=== PATIENT | female | born 1965 | race Caucasian/White ===

== ENCOUNTER 2016-11-28 22:37 | Emergency (ER) | payer OTHER ==
[2016-11-28 22:49] VITALS: BP 165/120; PULSE 113; TEMP 97.8; BMI 24.6
--- NOTE | 2016-11-28 23:51 | PDOC ---
History of Present Illness - General History Source: Patient Exam Limitations: No Limitations - History of Present Illness Initial Comments: 11/29/16 00:01 The patient is a 51 year old female with significant past medical history of hypertension, asthma/copd, rheumatoid arthritis, bipolar disorder, and posttraumatic stress disorder who presents to the ED with diffuse lower abdominal pain that began today. Patient reports her pain is worsened with movement. States noting some blood in her underwear, but unsure of physical source. She also has complaints of right flank pain and denies dysuria. Her LMP was 2 years ago. Patient reports associated nausea, vomiting, some diarrhea and abdominal bloating. She states having a endoscopy and colonoscopy in the past, which were both negative. The patient denies fever, chills, cough, SOB, chest pain, and palpitations. Allergies: lubiprostone, prochlorperazine edisylate, prochlorperazine maleate Social History: Marijuana use. Current everyday smoker (half ppd). No alcohol use reported. Past Surgical History: s/p left Total Knee Replacement, PCP: Dr. Mitra Elizondo <Sarah Mock - Last Filed: 11/29/16 04:03> - General History Source: Patient <RonalGulshan brody - Last Filed: 11/29/16 04:46> - General Chief Complaint: Pain Stated Complaint: KIDNEY PAIN Time Seen by Provider: 11/28/16 23:22 Past History <Sarah Mock - Last Filed: 11/29/16 04:03> - Past Medical History Cardiac Disorders: Yes COPD: Yes HTN: Yes Psychiatric Problems: Yes (ptsd, schizophrenia, BIPOLAR) Suicide Attempt (Hx): No - Immunization History Immunization Up to Date: Yes (no flu) - Psycho/Social/Smoking Cessation Hx Anxiety: No Suicidal Ideation: No Smoking History: Current every day smoker Have you smoked in the past 12 months: No Number of Cigarettes Smoked Daily: 5 If you are a former smoker, when did you quit?: 2014 Cigars Per Day: 0 Information on smoking cessation initiated: No 'Breaking Loose' booklet given: 04/16/16 Hx Alcohol Use: Yes Drug/Substance Use Hx: No Substance Use Type: None <Gulshan Rebolledo - Last Filed: 11/29/16 04:46> - Past Medical History Allergies/Adverse Reactions: Allergies Allergy/AdvReac Type Severity Reaction Status Date / Time lubiprostone [From Amitiza] Allergy Verified 11/28/16 22:47 prochlorperazine edisylate Allergy Verified 11/28/16 22:47 [From Compazine] prochlorperazine maleate Allergy Verified 11/28/16 22:47 [From Compazine] Home Medications: Ambulatory Orders Lisinopril 0 mg PO DAILY 06/20/16 Metoprolol Succinate [Toprol XL -] 0 mg PO DAILY 06/20/16 Ondansetron [Zofran *Odt*] 4 mg SL TID #30 od.tablet 11/29/16 Oxycodone HCl/Acetaminophen [Percocet 5-325 mg Tablet] 1 - 2 tab PO Q6H #20 tablet MDD 4 11/29/16 Review of Systems - Review of Systems Able to Perform ROS?: Yes Comments:: 11/29/16 00:01 CONSTITUTIONAL: Absent: fever, no chills, no fatigue EYES: Absent: visual changes ENT: Absent: ear pain, no sore throat CARDIOVASCULAR: Absent: chest pain, no palpitations RESPIRATORY: Absent: cough, no SOB GI: +diffuse lower abdominal pain, nausea, vomiting, diarrhea, abdominal bloating Absent: no constipation GENITOURINARY: +vaginal bleeding/hematuria??, right flank pain Absent: dysuria, no frequency MUSCULOSKELETAL: Absent: back pain, no arthralgia, no myalgia SKIN: Absent: rash NEURO: Absent: headache <Bharrat,Sarah - Last Filed: 11/29/16 04:03> *Physical Exam - Vital Signs Last Vital Signs Temp Pulse Resp BP Pulse Ox 97.8 F 113 H 14 165/120 97 11/28/16 22:47 11/28/16 22:47 11/28/16 22:47 11/28/16 22:47 11/28/16 22:47 - Physical Exam Comments: 11/29/16 00:01 GENERAL: Well-appearing, well-nourished. Moderate distress. HEENT: Normocephalic, atraumatic. PERRL, EOM intact. CARDIOVASCULAR: Normal S1, S2. Regular rate and rhythm. PULMONARY: Clear to auscultation bilaterally. ABDOMEN: Soft, non-distended, right lower quadrant tenderness. + rebound and guarding. EXTREMITIES: Normal ROM in all four extremities. No gross deformities. SKIN: Warm, dry. No rash NEUROLOGICAL: No focal neurological deficits. <Sarah Mock - Last Filed: 11/29/16 04:03> - Vital Signs Last Vital Signs Temp Pulse Resp BP Pulse Ox 97.8 F 113 H 14 165/120 97 11/28/16 22:47 11/28/16 22:47 11/28/16 22:47 11/28/16 22:47 11/28/16 22:47 <Gulshan Rebolledo - Last Filed: 11/29/16 04:46> ED Treatment Course - LABORATORY CBC & Chemistry Diagram: 11/29/16 00:46 11/29/16 00:46 - RADIOLOGY Radiograph Interpretation: 11/29/16 04:03 EXAM: CT abdomen and pelvis without contrast Reviewed by Imaging vocational coordinator: FINDINGS: Lung bases are clear. The visualized cardiac chambers are normal size and configuration. Normal unenhanced liver, gallbladder, pancreas, spleen, adrenal glands and kidneys. The stomach and abdominal small and large bowel are normal. There is no aortic aneurysm. There is no significant retroperitoneal lymphadenopathy. The pelvic small and large bowel are normal. There is no evidence of appendicitis, although the appendix is only questionably seen. The uterus and adnexal structures are normal. Urinary bladder is unremarkable. There is no pelvic free fluid. No discrete pelvic lymphadenopathy is identified. IMPRESSION: No evidence of acute pathology. <Sarah Mock - Last Filed: 11/29/16 04:03> - LABORATORY CBC & Chemistry Diagram: 11/29/16 00:46 11/29/16 00:46 <Gulshan Rebolledo - Last Filed: 11/29/16 04:46> Medical Decision Making - Medical Decision Making 11/29/16 04:44 Dr. Rebolledo: The scribe's documentation has been prepared under my direction and personally reviewed by me in its entirery. I confirm that the note above accurately reflects all work, treatment, procedures, and medical decision making performed by me. Pt feels better. Although no obvious kidney stones are seen, still have high suspicion for for stones. Pt advised to follow up with urology. Rx Percocet, Zofran <Gulshan Rebolledo - Last Filed: 11/29/16 04:46> *DC/Admit/Observation/Transfer - Attestations Scribe Attestion: 11/29/16 00:01 Documentation prepared by Sarah Mock, acting as medical insurance clerk for Gulshan Rebolledo MD <Sarah Mock - Last Filed: 11/29/16 04:03> - Discharge Dispostion Admit: No <Gulshan Rebolledo - Last Filed: 11/29/16 04:46> Diagnosis at time of Disposition: Nausea and vomiting, Renal colic on right side Abdominal pain Qualifiers: Abdominal location: right lower quadrant Qualified Code(s): R10.31 - Right lower quadrant pain - Discharge Dispostion Disposition: HOME Condition at time of disposition: Improved - Prescriptions Prescriptions: Oxycodone HCl/Acetaminophen [Percocet 5-325 mg Tablet] 1 - 2 tab PO Q6H #20 tablet MDD 4 Ondansetron [Zofran *Odt*] 4 mg SL TID #30 od.tablet - Referrals Referrals: Kristian Elizondo [Primary Care Provider] - Erwin Rossi MD., MD [Staff Physician] - - Patient Instructions Printed Discharge Instructions: DI for Abdominal Pain-Adult, Kidney Stones -- Adult
[2016-11-29] MEDS ORDERED: morphine CARPU-JECT 4 MG/1 ML DISP.SYRIN ONE (00:38)
[2016-11-29] MEDS: morphine CARPU-JECT 2 MG/1 ML DISP.SYRIN IM ONE (00:51)
[2016-11-29] MEDS: ONDANSETRON *ODT* 4 MG TABLET SL ONE (01:00)
[2016-11-29] MEDS: SODIUM CHLORIDE 1,000 ML IV STA (01:00)
[2016-11-29 01:06] LABS: BASOPHIL 0.7 % (0-2.0); EOSINOPHIL 3.1 % (0-4.5); MCH 31.1 pg (25.7-33.7); MCHC 34.5 g/dl (32.0-36.0); MEAN CELL VOLUME 90.1 fl (80-96); MEAN PLT VOLUME 10.7 fl (7.5-11.1); NEUTROPHILS 59.2 % (42.8-82.8); PLATELET COUNT 193 K/MM3 (134-434); RDW 13.7 % (11.6-15.6); WHITE BLOOD COUNT 9.5 K/mm3 (4.0-10.0)
[2016-11-29 01:09] LABS: URINE APPEARANCE CLEAR; URINE BILIRUBIN NEGATIVE (NEGATIVE); URINE COLOR LTYELLOW; URINE GLUCOSE (UA) NEGATIVE (NEGATIVE); URINE KETONE NEGATIVE (NEGATIVE); URINE LEUK ESTERASE NEGATIVE (NEGATIVE); URINE NITRITE NEGATIVE (NEGATIVE); URINE PROTEIN NEGATIVE (NEGATIVE); URINE UROBILINOGEN NEGATIVE E.U./dl (0.2-1.0)
[2016-11-29 01:15] LABS: URINE BLOOD 3+ (NEGATIVE)
[2016-11-29 01:17] LABS: URINE MUCUS RARE; URINE RBC 577 /hpf (0-3); URINE WBC 10 /hpf (3-5)
[2016-11-29 01:19] LABS: INR 1.04 (0.82-1.09); PROTHROMBIN TIME (PATIENT) 11.5 SEC (9.98-11.88)
[2016-11-29] MEDS: ONDANSETRON 4 MG/2 ML VIAL IVPUSH STA ×2 (01:26→04:27)
[2016-11-29] MEDS: morphine CARPU-JECT 4 MG/1 ML DISP.SYRIN IVPUSH ONE (01:26)
[2016-11-29 01:28] LABS: ALBUMIN 3.8 g/dl (3.4-5.0); ANION GAP 11 (8-16); BILIRUBIN,TOTAL 0.4 mg/dL (0.2-1.0); CALCIUM 9.1 mg/dL (8.5-10.1); CO2 23 mmol/L (21-32); COCKROFT - GAULT 116.195; CREATININE 0.7 mg/dL (0.55-1.02); GLUCOSE,RANDOM 96 mg/dL (74-106); MAGNESIUM 1.9 mg/dL (1.8-2.4); SGOT/AST 24 U/L (15-37); SGPT/ALT 30 U/L (12-78); TOT PROT 7.3 g/dl (6.4-8.2)
[2016-11-29 01:29] LABS: ALK PHOS 118 U/L (45-117)
[2016-11-29] MEDS: morphine CARPU-JECT 2 MG/1 ML DISP.SYRIN IVPUSH ONE (04:27)
== END 2016-11-29 04:56 | disposition home or self-care (01) ==
LOC: JER 22:37
PROC: 3E0337Z Introduction of Electrolytic and Water Balance Substance into Peripheral Vein, Percutaneous Approach (ICD-10-PCS; principal; 2016-11-28)
PROC: 3E033NZ Introduction of Analgesics, Hypnotics, Sedatives into Peripheral Vein, Percutaneous Approach (ICD-10-PCS; 2016-11-28)
PROC: 3E033GC Introduction of Other Therapeutic Substance into Peripheral Vein, Percutaneous Approach (ICD-10-PCS; 2016-11-28)
PROC: 3E023NZ Introduction of Analgesics, Hypnotics, Sedatives into Muscle, Percutaneous Approach (ICD-10-PCS; 2016-11-28)
DX: N23 Unspecified renal colic (principal); F31.9 Bipolar disorder, unspecified; F43.10 Post-traumatic stress disorder, unspecified; I10 Essential (primary) hypertension; J44.9 Chronic obstructive pulmonary disease, unspecified; J45.909 Unspecified asthma, uncomplicated; M06.9 Rheumatoid arthritis, unspecified
CPT/HCPCS: 36415; 74176-TC; 80053; 81003; 81015; 83735; 84703; 85025; 85610; 86850; 86900; 86901; 87086; 99284-25

== ENCOUNTER 2016-11-30 09:16 | Emergency (ER) | payer OTHER ==
[2016-11-30 09:21] VITALS: TEMP 98.3; BMI 25.1
[2016-11-30] MEDS ORDERED: morphine CARPU-JECT 4 MG/1 ML DISP.SYRIN IVPUSH ONE (09:42)
[2016-11-30] MEDS ORDERED: SODIUM CHLORIDE 1,000 ML IV STA (09:42)
[2016-11-30] MEDS ORDERED: morphine CARPU-JECT 4 MG/1 ML DISP.SYRIN ONE (09:49)
[2016-11-30] MEDS ORDERED: ONDANSETRON 4 MG/2 ML VIAL ONE (09:53)
[2016-11-30] MEDS ORDERED: ONDANSETRON 4 MG/2 ML VIAL IVPUSH ONE (09:53)
--- NOTE | 2016-11-30 09:53 | PDOC ---
History of Present Illness - General History Source: Patient - History of Present Illness Timing/Duration: reports: getting worse Abdominal Pain Onset Location: reports: suprapubic <Shahriar Prieto - Last Filed: 11/30/16 12:40> <Nessa Neil - Last Filed: 12/01/16 07:53> - General Chief Complaint: Pain Stated Complaint: ABD PAIN, VAGINAL BLEEDING Time Seen by Provider: 11/30/16 09:37 Past History - Past Medical History Cardiac Disorders: Yes COPD: Yes HTN: Yes Psychiatric Problems: Yes (ptsd, schizophrenia, BIPOLAR) Suicide Attempt (Hx): No - Immunization History Immunization Up to Date: Yes (no flu) - Psycho/Social/Smoking Cessation Hx Anxiety: No Suicidal Ideation: No Smoking History: Current every day smoker Have you smoked in the past 12 months: No Number of Cigarettes Smoked Daily: 5 If you are a former smoker, when did you quit?: 2013 Cigars Per Day: 0 Information on smoking cessation initiated: No 'Breaking Loose' booklet given: 04/16/16 Hx Alcohol Use: Yes Drug/Substance Use Hx: No Substance Use Type: None <Leila PrietoYadielKeerthi - Last Filed: 11/30/16 12:40> <Nessa Neil - Last Filed: 12/01/16 07:53> - Past Medical History Allergies/Adverse Reactions: Allergies Allergy/AdvReac Type Severity Reaction Status Date / Time lubiprostone [From Amitiza] Allergy Verified 11/30/16 09:21 prochlorperazine edisylate Allergy Verified 11/30/16 09:21 [From Compazine] prochlorperazine maleate Allergy Verified 11/30/16 09:21 [From Compazine] Home Medications: Ambulatory Orders Lisinopril 0 mg PO DAILY 06/20/16 Metoprolol Succinate [Toprol XL -] 0 mg PO DAILY 06/20/16 Ondansetron [Zofran *Odt*] 4 mg SL TID #30 od.tablet 11/29/16 Oxycodone HCl/Acetaminophen [Percocet 5-325 mg Tablet] 1 - 2 tab PO Q6H #20 tablet MDD 4 11/29/16 Review of Systems - Review of Systems Constitutional: No: Chills, Fever ABD/GI: Yes: Nausea. No: Vomiting : No: Burning, Dysuria, Hematuria <Shahriar Prieto - Last Filed: 11/30/16 12:40> *Physical Exam - Vital Signs Last Vital Signs Temp Pulse Resp BP Pulse Ox 98.3 F 125 H 18 161/100 100 11/30/16 09:18 11/30/16 09:18 11/30/16 09:18 11/30/16 09:18 11/30/16 09:18 - Physical Exam General Appearance: Yes: Appropriately Dressed, Severe Distress HEENT: positive: Normal Voice Neck: positive: Supple Respiratory/Chest: negative: Respiratory Distress Gastrointestinal/Abdominal: positive: Normal Bowel Sounds, Tender, Soft. negative: Distended, Guarding, Rebound Integumentary: positive: Dry, Warm Neurologic: positive: Fully Oriented, Alert, Normal Mood/Affect <Shahriar Prieto - Last Filed: 11/30/16 12:40> - Vital Signs Last Vital Signs Temp Pulse Resp BP Pulse Ox 98.3 F 99 H 22 144/89 99 11/30/16 09:18 11/30/16 12:53 11/30/16 12:53 11/30/16 12:53 11/30/16 12:53 <Nessa Neil - Last Filed: 12/01/16 07:53> ED Treatment Course - LABORATORY CBC & Chemistry Diagram: 11/30/16 09:46 11/30/16 09:46 - RADIOLOGY Radiology Studies Ordered: Category Date Time Status PELVIS(OTHER) US [US] Stat Ultrasound 11/30/16 09:42 Ordered TRANSVAGINAL ULTRASOUND US [US] Stat Ultrasound 11/30/16 09:43 Ordered <Shahriar Prieto - Last Filed: 11/30/16 12:40> - LABORATORY CBC & Chemistry Diagram: 11/30/16 09:46 11/30/16 09:46 - ADDITIONAL ORDERS Additional order review: 11/30/16 09:46 RBC 4.44 MCV 91.1 MCHC 33.6 RDW 13.6 MPV 10.5 Neutrophils % 65.9 Lymphocytes % 22.2 Monocytes % 8.1 Eosinophils % 3.1 Basophils % 0.7 - Medications Given in the ED: ED Medications Discontinued Medications Generic Name Dose Route Start Last Admin Trade Name Freq PRN Reason Stop Dose Admin Sodium Chloride 1,000 mls @ 1,000 mls/hr 11/30/16 09:42 11/30/16 10:04 Normal Saline - IV 11/30/16 10:41 1,000 mls/hr ASDIR STA Administration Ketorolac Tromethamine 30 mg 11/30/16 12:16 11/30/16 12:27 Toradol Injection - IVPUSH 11/30/16 12:17 30 mg ONCE ONE Administration Morphine Sulfate 4 mg 11/30/16 09:42 11/30/16 10:04 Morphine Injection - IVPUSH 11/30/16 09:43 4 mg ONCE ONE Administration Ondansetron HCl 4 mg 11/30/16 09:53 11/30/16 10:04 Zofran Injection IVPUSH 11/30/16 09:54 4 mg ONCE ONE Administration <Nessa Neil - Last Filed: 12/01/16 07:53> Medical Decision Making - Medical Decision Making 11/30/16 09:45 51-year-old female history of hypertension, asthma/COPD, rheumatoid arthritis, bipolar disorder, posttraumatic stress disorder, chronic constipation on bowel regimen at home, menopausal x 2 years, s/p csection remotely, presents with severe pelvic pain and worsening vaginal bleeding. Patient was seen in ED 2 days ago for symptoms and had unremarkable labs and CT abdomen/pelvis and told to follow-up with her PMD. Patient states she was seen by PMD this a.m. who referred her back to the ED for re-evaluation. Patient states since she was seen in ED, vaginal bleeding has gotten worse. +nausea, no vomiting, dysuria, vaginal discharge, fever or chills. No h/o fibroids/cysts. No unexplained weight loss. Patient does have a sister with endometrial cancer See exam Post menopausal bleeding Normal H/H 2 days ago +fmhx of uterine ca -will need visual and stock associate f/u for bx Pelvic pain Neg w/u 2 days ago in ED, including unremarkable CT (did document no e/o appy though appendix ? seen as per radiology) Returns for worsening of sxs Pt appears very uncomfortable and hypertensive and tachycardic +ttp to mid suprapubic area, non-tender over [place] Pelvic w/ mod vag bleed w/ ?R adnexal ttp, no CMT Unclear etiology of sxs at this time, ?PID/TOA (though vag bleed and absence of vag discharge makes this less likely), doubt hemorrhagic cyst given pt's age, ucx neg from 2 days ago, though CT w/ ?visualization of appendix 2 days ago, pt NT over mcburneys today and do not suspect appy at this time -pain control -labs and US -reassess 11/30/16 12:40 Mild thickened endometrium on US, R ovary unseen, L ovary unremarkable and no adnexal masses or e/o torsion. Pt pain free currently and requesting discharge to go to work. Given copy of US and strongly encouraged to f/u with her visual and stock associate to r /o uterine malignancy. 11/30/16 12:44 <Shahriar Prieto - Last Filed: 11/30/16 12:40> *DC/Admit/Observation/Transfer <Shahriar Prieto - Last Filed: 11/30/16 12:40> - Attestations Physician Attestion: I reviewed the case with the mid-level practitioner and agree with the mid- level practitioner's assessment, diagnosis and disposition. <Nessa Neil - Last Filed: 12/01/16 07:53> Diagnosis at time of Disposition: Pelvic pain, Post-menopausal bleeding - Discharge Dispostion Disposition: HOME Condition at time of disposition: Improved - Referrals Referrals: Kristian Elizondo [Primary Care Provider] - - Patient Instructions Additional Instructions: Take motrin for pain and follow up with your visual and stock associate for a uterine biopsy to rule out malignancy
[2016-11-30 10:05] LABS: BASOPHIL 0.7 % (0-2.0); EOSINOPHIL 3.1 % (0-4.5); MCH 30.6 pg (25.7-33.7); MCHC 33.6 g/dl (32.0-36.0); MEAN CELL VOLUME 91.1 fl (80-96); MEAN PLT VOLUME 10.5 fl (7.5-11.1); NEUTROPHILS 65.9 % (42.8-82.8); PLATELET COUNT 167 K/MM3 (134-434); RDW 13.6 % (11.6-15.6); WHITE BLOOD COUNT 8.3 K/mm3 (4.0-10.0)
[2016-11-30 10:21] LABS: URINE APPEARANCE SLCLOUDY; URINE BILIRUBIN NEGATIVE (NEGATIVE); URINE COLOR RED; URINE GLUCOSE (UA) NEGATIVE (NEGATIVE); URINE KETONE NEGATIVE (NEGATIVE); URINE LEUK ESTERASE NEGATIVE (NEGATIVE); URINE NITRITE NEGATIVE (NEGATIVE); URINE UROBILINOGEN NEGATIVE E.U./dl (0.2-1.0)
[2016-11-30 10:22] LABS: URINE BLOOD 2+ (NEGATIVE); URINE PROTEIN 2+ (NEGATIVE)
[2016-11-30 10:26] LABS: ALBUMIN 3.8 g/dl (3.4-5.0); ALK PHOS 120 U/L (45-117); ANION GAP 7 (8-16); BILIRUBIN,TOTAL 0.5 mg/dL (0.2-1.0); CALCIUM 8.8 mg/dL (8.5-10.1); CO2 26 mmol/L (21-32); CREATININE 0.8 mg/dL (0.55-1.02); GLUCOSE,RANDOM 94 mg/dL (74-106); SGOT/AST 30 U/L (15-37); SGPT/ALT 33 U/L (12-78); TOT PROT 7.3 g/dl (6.4-8.2)
[2016-11-30 10:30] LABS: URINE BACTERIA RARE /hpf (NONE SEEN); URINE RBC 1759 /hpf (0-3); URINE WBC 10 /hpf (3-5)
[2016-11-30] MEDS ORDERED: KETOROLAC TROMETHAMINE 30 MG/1 ML VIAL IVPUSH ONE (12:16)
[2016-11-30] MEDS ORDERED: KETOROLAC TROMETHAMINE 30 MG/1 ML VIAL ONE (12:28)
[2016-11-30 12:54] VITALS: BP 144/89; PULSE 99
== END 2016-11-30 12:54 | disposition home or self-care (01) ==
LOC: JER 09:16
PROC: 3E033NZ Introduction of Analgesics, Hypnotics, Sedatives into Peripheral Vein, Percutaneous Approach (ICD-10-PCS; principal; 2016-11-30)
PROC: 3E0333Z Introduction of Anti-inflammatory into Peripheral Vein, Percutaneous Approach (ICD-10-PCS; 2016-11-30)
PROC: 3E033GC Introduction of Other Therapeutic Substance into Peripheral Vein, Percutaneous Approach (ICD-10-PCS; 2016-11-30)
DX: N95.0 Postmenopausal bleeding (principal); J44.9 Chronic obstructive pulmonary disease, unspecified; J45.909 Unspecified asthma, uncomplicated; F43.10 Post-traumatic stress disorder, unspecified; F20.9 Schizophrenia, unspecified; F31.9 Bipolar disorder, unspecified; K59.09 Other constipation
CPT/HCPCS: 36415; 76830-TC; 76856-TC; 80053; 81003; 81015; 85025; 87086; 87491; 87591; 96374; 96375; 99283-25

== ENCOUNTER 2017-09-09 17:59 | Emergency (ER) | payer OTHER ==
[2017-09-09 18:07] VITALS: BMI 25.1
[2017-09-09] MEDS ORDERED: KETOROLAC TROMETHAMINE 60 MG/2 ML VIAL IM ONE (18:40)
--- NOTE | 2017-09-09 18:40 | PDOC ---
History of Present Illness <Marissa Gallo - Last Filed: 09/09/17 21:07> - General History Source: Patient Exam Limitations: No Limitations - History of Present Illness Initial Comments: 09/09/17 23:46 Patient is a 52 year old female with a significant past medical history of hypertension, asthma/copd, rheumatoid arthritis, bipolar disorder, and posttraumatic stress disorder who presents to the ED with complaints of right sided neck pain that began earlier today. Patient reports experiencing sudden onset of excruciating right neck pain that has shown no signs of subsiding. Patient reports experiencing bilateral lower back pain, neck pain and intermittent chest pain secondary to intense dry hacking cough. She reports she is afraid to turn her head due to pain. Denies nausea, vomiting. Denies fevers, chills. DEnies contact with sick individuals, out state travelling. Denies any other symptoms. Allergies: Lubiprostone, Prochlorperazine edisylate, prochlorperazine maleate Social history: Marijuana use. Current everyday smoker (half ppd). No alcohol use reported. Surgical history: s/p left Total Knee Replacement, PMD: Dr. Elizondo <Martin Narvaez - Last Filed: 09/09/17 23:47> - General Chief Complaint: Back Pain Stated Complaint: BACK PAIN Time Seen by Provider: 09/09/17 18:18 Past History - Past Medical History Cardiac Disorders: Yes COPD: Yes DVT: No HTN: Yes Psychiatric Problems: Yes (ptsd, schizophrenia, BIPOLAR) - Immunization History Immunization Up to Date: Yes (no flu) - Suicide/Smoking/Psychosocial Hx Smoking History: Never smoked Have you smoked in the past 12 months: No Number of Cigarettes Smoked Daily: 5 If you are a former smoker, when did you quit?: 2013 Cigars Per Day: 0 Information on smoking cessation initiated: No 'Breaking Loose' booklet given: 04/16/16 Hx Alcohol Use: No Drug/Substance Use Hx: No Substance Use Type: None <Marissa Gallo - Last Filed: 09/09/17 21:07> <Martin Narvaez - Last Filed: 09/09/17 23:47> - Past Medical History Allergies/Adverse Reactions: Allergies Allergy/AdvReac Type Severity Reaction Status Date / Time lubiprostone [From Amitiza] Allergy Verified 09/09/17 18:05 prochlorperazine edisylate Allergy Verified 09/09/17 18:05 [From Compazine] prochlorperazine maleate Allergy Verified 09/09/17 18:05 [From Compazine] Home Medications: Ambulatory Orders Lisinopril 0 mg PO DAILY 06/20/16 Metoprolol Succinate [Toprol XL -] 0 mg PO DAILY 06/20/16 Albuterol 0.083% Nebulizer Chela [Ventolin 0.083%] 1 neb NEB QID 09/09/17 Clonazepam [Klonopin] 1 mg PO PRN 09/09/17 Naproxen [Naprosyn -] 500 mg PO BID 09/09/17 Review of Systems - Review of Systems Able to Perform ROS?: Yes Comments:: 09/09/17 23:46 CONSTITUTIONAL: Absent: fever, chills, diaphoresis, generalized weakness, malaise, loss of appetite HEENT: +Right sided neck pain. Absent: rhinorrhea, nasal congestion, throat pain, throat swelling, difficulty swallowing, mouth swelling, ear pain, eye pain, visual Changes CARDIOVASCULAR: +Chest pain. Absent: chest pain, syncope, palpitations, irregular heart rate, lightheadedness , peripheral edema RESPIRATORY: +Coughing. Absent: shortness of breath, dyspnea with exertion, orthopnea, wheezing, stridor , hemoptysis GASTROINTESTINAL: Absent: abdominal pain, abdominal distension, nausea, vomiting, diarrhea, constipation, melena, hematochezia GENITOURINARY: Absent: dysuria, frequency, urgency, hesitancy, hematuria, flank pain, genital pain MUSCULOSKELETAL: +Back pain. Absent: myalgia, arthralgia, joint swelling SKIN: Absent: rash, itching, pallor HEMATOLOGIC/IMMUNOLOGIC: Absent: easy bleeding, easy bruising, lymphadenopathy, frequent infections ENDOCRINE: Absent: unexplained weight gain, unexplained weight loss, heat intolerance, cold intolerance NEUROLOGIC: Absent: headache, focal weakness or paresthesias, dizziness, unsteady gait, seizure, mental status changes, bladder or bowel incontinence PSYCHIATRIC: Absent: anxiety, depression, suicidal or homicidal ideation, hallucinations. All Other Systems: Reviewed and Negative <Martin Narvaez - Last Filed: 09/09/17 23:47> *Physical Exam - Vital Signs Last Vital Signs Temp Pulse Resp BP Pulse Ox 98.3 F 103 H 18 140/90 100 09/09/17 18:05 09/09/17 18:05 09/09/17 18:05 09/09/17 18:05 09/09/17 18:05 <Marissa Gallo - Last Filed: 09/09/17 21:07> - Vital Signs Last Vital Signs Temp Pulse Resp BP Pulse Ox 100 F H 89 19 140/96 100 09/09/17 20:18 09/09/17 20:18 09/09/17 20:18 09/09/17 20:18 09/09/17 18:05 - Physical Exam Comments: 09/09/17 23:47 GENERAL: +Agitated. +anxious. +Conversant. Well developed, well nourished. Awake and alert. No acute distress. HEENT: Normocephalic, atraumatic. PERRLA, EOMI. No conjunctival pallor. Sclera are non- icteric. Moist mucous membranes. Oropharynx is clear. NECK: +Right sided tenderness. Supple. Full ROM. No JVD. Carotid pulses 2+ and symmetric, without bruits. No thyromegaly. No lymphadenopathy. CARDIOVASCULAR: Regular rate and rhythm. No murmurs, rubs, or gallops. Distal pulses are 2+ and symmetric. PULMONARY: +Dry hacking cough. No evidence of respiratory distress. Lungs clear to auscultation bilaterally. No wheezing, rales or rhonchi. ABDOMINAL: Soft. Non-tender. Non-distended. No rebound or guarding. No organomegaly. Normoactive bowel sounds. MUSCULOSKELETAL Normal range of motion at all joints. No bony deformities or tenderness. No CVA tenderness. EXTREMITIES: No cyanosis. No clubbing. No edema. No calf tenderness. SKIN: Warm and dry. Normal capillary refill. No rashes. No jaundice. NEUROLOGICAL: Alert, awake, appropriate. Cranial nerves 2-12 intact. No deficits to light touch and temperature in face, upper extremities and lower extremities. No motor deficits in the in face, upper extremities and lower extremities. Normoreflexic in the upper and lower extremities. Normal speech. Toes are down-going bilaterally. Gait is normal without ataxia. PSYCHIATRIC: Cooperative. Good eye contact. Appropriate mood and affect. <Martin Narvaez - Last Filed: 09/09/17 23:47> ED Treatment Course - ADDITIONAL ORDERS Additional order review: 09/09/17 20:30 Influenza Types A,B Antigen (DONYA) - Final Nasopharyngeal Swab - Final - Medications Given in the ED: ED Medications Discontinued Medications Generic Name Dose Route Start Last Admin Trade Name Demond PRN Reason Stop Dose Admin Diazepam 5 mg 09/09/17 18:52 09/09/17 18:56 Valium - PO 09/09/17 18:53 5 mg ONCE ONE Administration Ketorolac Tromethamine 60 mg 09/09/17 18:40 09/09/17 18:45 Toradol Injection - IM 09/09/17 18:41 60 mg ONCE ONE Administration Oxycodone/Acetaminophen 1 combo 09/09/17 20:18 09/09/17 20:32 Percocet 5/325 - PO 09/09/17 20:19 1 combo ONCE ONE Administration <Martin Narvaez - Last Filed: 09/09/17 23:47> *DC/Admit/Observation/Transfer <Marissa Gallo - Last Filed: 09/09/17 21:07> - Attestations Scribe Attestion: 09/09/17 23:47 Documentation prepared by Martin Narvaez, acting as adjunct faculty for medical terminology for Marissa Gallo MD/DO. <Martin Narvaez - Last Filed: 09/09/17 23:47> Diagnosis at time of Disposition: Neck pain, Cough Joint pain Qualifiers: Joint pain location: shoulder Laterality: right Qualified Code(s): M25.511 - Pain in right shoulder - Discharge Dispostion Disposition: HOME Condition at time of disposition: Stable - Referrals Referrals: Kristian Elizondo [Primary Care Provider] - Jose Marin MD [Staff Physician] - - Patient Instructions Printed Discharge Instructions: DI for Neck Pain Additional Instructions: please followup with your doctor - Post Discharge Activity
[2017-09-09] MEDS ORDERED: KETOROLAC TROMETHAMINE 60 MG/2 ML VIAL ONE (18:43)
[2017-09-09] MEDS ORDERED: diazePAM 5 MG TABLET PO ONE (18:52)
[2017-09-09] MEDS ORDERED: diazePAM 5 MG TABLET ONE (18:55)
[2017-09-09 20:18] VITALS: BP 140/96; PULSE 89; TEMP 100
== END 2017-09-09 22:19 | disposition home or self-care (01) ==
LOC: JER 17:59
PROC: 3E0233Z Introduction of Anti-inflammatory into Muscle, Percutaneous Approach (ICD-10-PCS; principal; 2017-09-09)
DX: M54.2 Cervicalgia (principal); M25.511 Pain in right shoulder; I10 Essential (primary) hypertension; J44.9 Chronic obstructive pulmonary disease, unspecified; F31.9 Bipolar disorder, unspecified; F43.10 Post-traumatic stress disorder, unspecified; F20.9 Schizophrenia, unspecified; M06.9 Rheumatoid arthritis, unspecified
CPT/HCPCS: 87804; 96372; 99283-25

== ENCOUNTER 2018-11-13 08:23 | Emergency (ER) | payer OTHER ==
[2018-11-13 08:30] VITALS: BP 151/98; PULSE 106; TEMP 97.9; BMI 22.8
[2018-11-13] MEDS ORDERED: ACETAMINOPHEN 500 MG TABLET (FP) PO ONE (08:50)
[2018-11-13] MEDS ORDERED: ACETAMINOPHEN 500 MG TABLET (FP) ONE (08:52)
--- NOTE | 2018-11-13 09:06 | PDOC ---
History of Present Illness - General Chief Complaint: Sore Throat Stated Complaint: throat swelling Time Seen by Provider: 11/13/18 08:38 History Source: Patient Exam Limitations: No Limitations - History of Present Illness Initial Comments: 11/13/18 11:01 came for eval of worsening throat and neck pain. Has been told had swollen lymphnodes. HAd polyps removed from ENT from [facility] 5 years ago, and has been followed and he clinic since that time. Was seen a few weeks ago for tenderness to her neck and reports was told him further testing that included a sleep study test. Patient states that was completed one week ago and was waiting to be called for a follow-up visit. Patient denies fever, denies any URI symptoms. However states has some tenderness with swallowing that is progressively worsening. Is using Tylenol and Advil for pain relief. 11/13/18 11:03 11/13/18 11:32 Timing/Duration: unsure Severity: moderate Associated Symptoms: reports: fever/chills, headaches. denies: cough, diaphoresis Past History - Travel Traveled outside of the country in the last 30 days: No Close contact w/someone who was outside of country & ill: No - Past Medical History Allergies/Adverse Reactions: Allergies Allergy/AdvReac Type Severity Reaction Status Date / Time lubiprostone [From Amitiza] Allergy Verified 11/13/18 08:37 prochlorperazine edisylate Allergy Verified 11/13/18 08:37 [From Compazine] prochlorperazine maleate Allergy Verified 11/13/18 08:37 [From Compazine] Home Medications: Ambulatory Orders Lisinopril 0 mg PO DAILY 06/20/16 Metoprolol Succinate [Toprol XL -] 0 mg PO DAILY 06/20/16 Albuterol 0.083% Nebulizer Chela [Ventolin 0.083%] 1 neb NEB QID 09/09/17 Clonazepam [Klonopin] 1 mg PO PRN 09/09/17 Naproxen [Naprosyn -] 500 mg PO BID 09/09/17 Cardiac Disorders: Yes COPD: Yes DVT: No HTN: Yes Psychiatric Problems: Yes (ptsd, schizophrenia, BIPOLAR) - Immunization History Immunization Up to Date: Yes (no flu) - Suicide/Smoking/Psychosocial Hx Smoking History: Current every day smoker Have you smoked in the past 12 months: Yes Number of Cigarettes Smoked Daily: 4 If you are a former smoker, when did you quit?: 2013 Cigars Per Day: 0 Information on smoking cessation initiated: No 'Breaking Loose' booklet given: 04/16/16 Hx Alcohol Use: No Drug/Substance Use Hx: No Substance Use Type: None Review of Systems - Review of Systems Able to Perform ROS?: Yes Is the patient limited Austrian proficient: Yes Constitutional: Yes: Symptoms Reported, See HPI, Chills, Fever, Malaise HEENTM: Yes: Symptoms Reported, See HPI, Nose Congestion, Throat Pain, Throat Swelling, Difficulty Swallowing Respiratory: Yes: See HPI. No: Symptoms reported, Cough, Wheezing Cardiac (ROS): No: Symptoms Reported Integumentary: Yes: See HPI. No: Symptoms Reported, Bruising Neurological: Yes: Symptoms reported, See HPI. No: Headache Psychiatric: Yes: Anxiety, Stressors (states has significant stress in life with /son in retirement/recent of Goodfriend. Patient states has had Bipolar disease but is taking her medications as prescribed) All Other Systems: Reviewed and Negative *Physical Exam - Vital Signs Last Vital Signs Temp Pulse Resp BP Pulse Ox 97.9 F 106 H 20 151/98 100 11/13/18 08:28 11/13/18 08:28 11/13/18 08:28 11/13/18 08:28 11/13/18 08:28 - Physical Exam General Appearance: Yes: Nourished, Appropriately Dressed, Apparent Distress, Mild Distress, Moderate Distress HEENT: positive: KORY, TMs Normal. negative: Normal ENT Inspection, Pharynx Normal, Pharyngeal Erythema, Tonsillar Erythema, Nasal Congestion, Rhinorrhea Neck: positive: Tender, Lymphadenopathy (R), Lymphadenopathy (L), Other ( Rossley enlarged and tender firm nodes to bilateral neck, worse on the right than the left.). negative: Supple, Carotid bruit Respiratory/Chest: positive: Lungs Clear, Normal Breath Sounds Gastrointestinal/Abdominal: positive: Soft. negative: Tender Musculoskeletal: negative: Normal Inspection Extremity: positive: Normal Capillary Refill, Normal Inspection Integumentary: positive: Normal Color, Warm Neurologic: positive: associate professor II-XII NML intact, Fully Oriented, Alert, Normal Mood/ Affect, Normal Response, Motor Strength /5 ED Treatment Course - RADIOLOGY Radiology Studies Ordered: Category Date Time Status SOFT TISSUE NECK AND HEAD US [US] Stat Ultrasound 11/13/18 08:49 Ordered Medical Decision Making - Medical Decision Making 11/13/18 11:29 Ultrasound report shows large right lymph node as well as a density in the left submandibular fossa of uncertain etiology. Attempts to reach Dr. Ervin ENT for [facility] her that follows patient unsuccessful. Patient was able to reach nurse who works with Dr. Ervin who understands there was some changes in her ultrasound here and agrees patient would be served well coming back to [facility]. Discussed all of this with patient who agrees does not wish to have further studies done at [facility] but will go to [facility] for continued evaluation/treatments / testing through the ENT department. *DC/Admit/Observation/Transfer Diagnosis at time of Disposition: Lymphadenopathy, anterior cervical - Discharge Dispostion Disposition: HOME Condition at time of disposition: Stable Decision to Admit order: No - Referrals - Patient Instructions Printed Discharge Instructions: DI for Lymphadenopathy Additional Instructions: Continue taking Tylenol/ibuprofen for pain and swelling Drink plenty of fluids, soft foods/ice cream/ICes Call and make follow-up appointment at ear nose and throat doctor as soon as possible for further evaluation and testing of swelling and tenderness to neck Return to emergency department for worsening swelling, inability to swallow, fevers, or other worsening symptoms. - Post Discharge Activity Forms/Work/School Notes: Back to Work
== END 2018-11-13 11:39 | disposition home or self-care (01) ==
LOC: JERFT 08:23
DX: I10 Essential (primary) hypertension (principal); F43.10 Post-traumatic stress disorder, unspecified; F31.9 Bipolar disorder, unspecified; F17.210 Nicotine dependence, cigarettes, uncomplicated; R59.1 Generalized enlarged lymph nodes
CPT/HCPCS: 76536-TC; 99281-25

== ENCOUNTER 2018-12-15 01:51 | Emergency (ER) | payer OTHER ==
--- NOTE | 2018-12-15 03:15 | PDOC ---
History of Present Illness - General Chief Complaint: Psychiatric Stated Complaint: Sleep deprivation Time Seen by Provider: 12/15/18 03:15 - History of Present Illness Initial Comments: 12/15/18 03:34 The patient is a 53 year old female with a history of HTN, COPD, PTSD, Schizophrenia, Bipolar who presents for evaluation of insomnia. The patient reports that she has been unable to sleep for 2 weeks and was unable to fall asleep tonight with severe anxiety prompting her presentation to the ED for further evaluation. She states that she is on seroquel and clonadine at home with no improvement in her symptoms. She otherwise denies fevers, chills, SOB, chest pain, nausea, vomiting, abdominal pain, SI, HI, or changes with urination or bowel movements. Past History - Past Medical History Allergies/Adverse Reactions: Allergies Allergy/AdvReac Type Severity Reaction Status Date / Time lubiprostone [From Amitiza] Allergy Verified 12/15/18 02:51 prochlorperazine edisylate Allergy Verified 12/15/18 02:51 [From Compazine] prochlorperazine maleate Allergy Verified 12/15/18 02:51 [From Compazine] Home Medications: Ambulatory Orders Lisinopril 0 mg PO DAILY 06/20/16 Metoprolol Succinate [Toprol XL -] 0 mg PO DAILY 06/20/16 Albuterol 0.083% Nebulizer Chela [Ventolin 0.083%] 1 neb NEB QID 09/09/17 Clonazepam [Klonopin] 1 mg PO PRN 09/09/17 Naproxen [Naprosyn -] 500 mg PO BID 09/09/17 hydrOXYzine HCL [Atarax -] 25 mg PO DAILY PRN #4 tablet 12/15/18 Cardiac Disorders: Yes COPD: Yes DVT: No HTN: Yes Psychiatric Problems: Yes (ptsd, schizophrenia, BIPOLAR) - Immunization History Immunization Up to Date: Yes (no flu) - Suicide/Smoking/Psychosocial Hx Smoking History: Current some day smoker Have you smoked in the past 12 months: Yes Number of Cigarettes Smoked Daily: 4 If you are a former smoker, when did you quit?: 2014 Cigars Per Day: 0 Information on smoking cessation initiated: No 'Breaking Loose' booklet given: 04/16/16 Hx Alcohol Use: Yes Drug/Substance Use Hx: No Substance Use Type: None Review of Systems - Review of Systems Comments:: 12/15/18 03:40 Constitutional: No fevers, chills, fatigue, malaise HEENT: No Rhinorrhea, nasal congestion, visual changes Cardiovascular: No chest pain, syncope, palpitations, lightheadedness Respiratory: No Cough, SOB, Hemoptysis, Gastrointestinal: No Abdominal pain, Nausea, Vomiting, Constipation, Diarrhea, Melena Genitourinary: No Dysuria, Frequency, Urgency, Hesitancy, Hematuria, Flank pain Musculoskeletal: No Myalgia, arthralgia Skin: No rashes, itching, bruising, pallor Neurologic: No Headache, Dizziness, Numbness, Weakness, or Tingling Psychiatric: Insomnia, Anxiety. No Hallucinations. No SI or HI *Physical Exam - Vital Signs Last Vital Signs Temp Pulse Resp BP Pulse Ox 97.5 F L 89 19 114/75 98 12/15/18 01:51 12/15/18 01:51 12/15/18 01:51 12/15/18 01:51 12/15/18 01:51 - Physical Exam Comments: 12/15/18 03:40 General Appearance: Nourished. No Apparent Distress HEENT: EOMI, KORY. No Pharyngeal Erythema, Tonsillar Exudate, Tonsillar Erythema Neck: No Cervical Lymphadenopathy Respiratory/Chest: Lungs Clear, Normal Breath Sounds. No Crackles, Rales, Rhonchi, Wheezing Cardiovascular: Regular Rhythm, Regular Rate. No Murmur, Gallops, Rubs Gastrointestinal/Abdominal: Normal Bowel Sounds, Soft. No Guarding, Rebound, Tenderness Musculoskeletal: No CVA Tenderness Extremity: Normal Capillary Refill Integumentary: Normal Color, Dry, Warm Neurologic: Fully Oriented, Alert, Normal Mood/Affect, Pressured Speech Medical Decision Making - Medical Decision Making 12/15/18 03:44 The patient is a 53 year old female with a history of HTN, COPD, PTSD, Schizophrenia, Bipolar who presents for evaluation of insomnia. The patient has pressured speech on exam but currently denying HI, SI, hallucinations and does not want psychiatric evaluation. The patient appears medically well on exam here in the ED. We will treat the patient with atarax and are comfortable discharging the patient home with primary care provider follow up. Patient and family made aware of impression and plan, return precautions discussed including but not limited to worsening pain or symptoms, fevers, or signs of infection, chest pain, respiratory distress, inability to tolerate oral intake, dehydration, HI, SI, Manic Symptoms, syncope, or neurologic changes. The patient is to follow up with PMD and specialist as recommended within 1 week, follow up information provided and the patient will call for an appointment. The patient is to take medications as instructed for duration of time and continue with supportive care, avoid triggers and precipitants. Patient is safe for outpatient follow-up. *DC/Admit/Observation/Transfer Diagnosis at time of Disposition: Anxiety Insomnia Qualifiers: Insomnia type: unspecified Qualified Code(s): G47.00 - Insomnia, unspecified - Discharge Dispostion Disposition: HOME Condition at time of disposition: Stable Decision to Admit order: No - Prescriptions Prescriptions: hydrOXYzine HCL [Atarax -] 25 mg PO DAILY PRN #4 tablet PRN Reason: Insomnia - Referrals Referrals: Kristian Elizondo [Primary Care Provider] - - Patient Instructions Printed Discharge Instructions: DI for Insomnia Additional Instructions: 1) Please follow-up with your primary care doctor in the next 2-3 days. Please call tomorrow to schedule a follow up appointment. If you cannot follow up with your doctor within 1 week please return to the Emergency Department for any urgent issues. 2) If you have any worsening of symptoms or any other concerns please return to the ER immediately. Return if worsening symptoms including fevers, headache, vomiting, visual or hearing disturbances, abdominal pain, chest pain, shortness of breath, syncope, dehydration, inability to take things by mouth/vomiting, altered mental status, or worsening concerning symptoms. 3) Please continue taking your home medications as directed. Your medications on discharge include Atarax . Side effects may include upset stomach, abdominal pain, vomiting, or diarrhea. Do not drink alcohol with your medications. - Post Discharge Activity
--- NOTE | 2018-12-15 03:19 | PDOC ---
Attending Attestation - Resident Resident Name: Carlos A Torres - ED Attending Attestation I have performed the following: I have examined & evaluated the patient, The case was reviewed & discussed with the resident, I agree w/resident's findings & plan - HPI HPI: 12/15/18 03:28 [id number] female with a history of anxiety and bipolar disorder stating that she's unable to sleep due to stress related to her children. She denies pain complaints at this time. She has been compliant with her medications. She does not want psychiatric evaluation. She is not homicidal or suicidal. She is accompanied by her significant other who is at the bedside. - Physicial Exam PE: 12/15/18 03:29 GENERAL: Awake, in no acute distress HEAD: No signs of trauma EYES: ENT:clear without exudates. Moist mucosa NECK: Normal ROM, LUNGS:. Normal work of breathing. HEART: Regular rate and rhythm, ABDOMEN: Soft, nondistended CHEST WALL: BACK: No midline tenderness. EXTREMITIES:. No erythema, or tenderness NEUROLOGICAL: Alert, SKIN: Warm, Dry Psych: Anxious with mildly pressured speech, no homicidal or suicidal ideations , no hallucinations - Medical Decision Making 12/15/18 03:31 53-year-old female with history of bipolar disorder and now insomnia Patient given Atarax 25 mg in the emergency department and will be sent home on 4 additional tablets Patient states she is in the process of moving to [place] She was offered psychiatric evaluation which she has refused at this time Both her and her significant other are comfortable going home She has no criteria for being held against her will at this time, there is no active homicidal or suicidal ideation and patient is oriented 4 able to make decisions
[2018-12-15] MEDS ORDERED: hydrOXYzine HCL 25 MG TABLET (FP) PO ONE (03:28)
[2018-12-15 04:17] VITALS: BP 114/75; PULSE 89; TEMP 97.5; BMI 21.9
== END 2018-12-15 03:39 | disposition home or self-care (01) ==
LOC: JER 01:51
DX: F41.9 Anxiety disorder, unspecified (principal); G47.00 Insomnia, unspecified; I10 Essential (primary) hypertension; J44.9 Chronic obstructive pulmonary disease, unspecified; F31.9 Bipolar disorder, unspecified; F43.10 Post-traumatic stress disorder, unspecified; F20.9 Schizophrenia, unspecified
CPT/HCPCS: 99281-25

== ENCOUNTER 2021-02-08 14:07 | Emergency (ER) | payer OTHER ==
[2021-02-08 14:16] VITALS: BP 132/86; PULSE 97; TEMP 97.9; BMI 25.9
[2021-02-08 16:20] LABS: URINE APPEARANCE CLEAR; URINE BILIRUBIN NEGATIVE (NEGATIVE); URINE COLOR YELLOW; URINE GLUCOSE (UA) NEGATIVE (NEGATIVE); URINE KETONE NEGATIVE (NEGATIVE); URINE LEUK ESTERASE NEGATIVE (NEGATIVE); URINE NITRITE NEGATIVE (NEGATIVE); URINE PROTEIN NEGATIVE (NEGATIVE); URINE UROBILINOGEN 0.2 mg/dL (0.2-1.0)
== END 2021-02-08 17:28 | disposition home or self-care (01) ==
LOC: JER 14:07
DX: K59.00 Constipation, unspecified (principal)
CPT/HCPCS: 74019-TC-FY; 81003; 87077; 87086; 99284-25

== ENCOUNTER 2023-02-18 10:23 | Observation (INO) | payer OTHER ==
[2023-02-18 10:59] VITALS: BMI 27.1
[2023-02-18] MEDS ORDERED: SODIUM CHLORIDE 0.9% 500 ML INFUS.BAG IV ONE (11:12)
[2023-02-18] MEDS ORDERED: ACETAMINOPHEN 1000 MG/100 ML BAG IVPB ONE (11:15)
[2023-02-18] MEDS ORDERED: ACETAMINOPHEN INJECTION 100 ML IVPB ONE (11:44)
[2023-02-18 12:42] LABS: BASO % 0.5 % (0-2.0); EOS % 2.7 % (0-4.5); HEMATOCRIT 38.9 % (32.4-45.2); HEMOGLOBIN 12.9 GM/dL (10.7-15.3); LYMPH % 18.4 % (8-40); MCH 29.8 pg (25.7-33.7); MCHC 33.3 g/dl (32.0-36.0); MEAN CELL VOLUME 89.5 fl (80-96); MEAN PLT VOLUME 10.6 fl (7.5-11.1); NEUT % 69.4 % (42.8-82.8); PLATELET COUNT 233 10^3/uL (134-434); RBC 4.35 M/mm3 (3.60-5.2); RDW 13.6 % (11.6-15.6); WHITE BLOOD COUNT 9.9 K/mm3 (4.0-10.0)
[2023-02-18 13:36] LABS: POTASSIUM 4.1 mmol/L (3.5-5.1)
[2023-02-18 13:38] LABS: CALCIUM 9.4 mg/dL (8.5-10.1)
[2023-02-18 13:39] LABS: ALBUMIN 3.4 g/dl (3.4-5.0); BLOOD UREA NITROGEN 12.8 mg/dL (7-18)
[2023-02-18 13:42] LABS: CREATININE 0.7 mg/dL (0.55-1.3)
[2023-02-18 13:43] LABS: BILIRUBIN,TOTAL 0.4 mg/dL (0.2-1); TOT PROT 7.4 g/dl (6.4-8.2)
[2023-02-18] MEDS ORDERED: KETOROLAC TROMETHAMINE 15 MG/ML VIAL IVPUSH ONE (15:20)
[2023-02-18] MEDS ORDERED: hydrOXYzine PAMOATE 25 MG CAPSULE (FP) PO PRN (16:16)
[2023-02-18] MEDS ORDERED: clonazePAM 0.5 MG TABLET PO PRN (16:16)
[2023-02-18] MEDS ORDERED: KETOROLAC TROMETHAMINE 15 MG/ML VIAL IVPUSH PRN (16:21)
[2023-02-18] MEDS ORDERED: ACETAMINOPHEN 500 MG TABLET (FP) PO PRN (16:22)
[2023-02-18] MEDS: NICOTINE 14 MG/24 HOURS TOPICAL PATCH TD SCH (18:45)
[2023-02-18] MEDS: LISINOPRIL 5 MG TABLET PO SCH (18:45)
[2023-02-18] MEDS: metoPROLOL SUCCINATE 25 MG TAB.SR.24H (FP) PO SCH (18:45)
[2023-02-18] MEDS ORDERED: metoPROLOL SUCCINATE 25 MG TAB.SR.24H (FP) PO ONE (18:46)
[2023-02-18] MEDS ORDERED: LISINOPRIL 5 MG TABLET ONE (18:46)
[2023-02-18] MEDS ORDERED: NICOTINE 14 MG/24 HOURS TOPICAL PATCH TD ONE (18:46)
[2023-02-18] MEDS ORDERED: HEPARIN NA (PORCINE) 5,000 UNITS/ML 1ML VIAL ONE (22:14)
[2023-02-18] MEDS: HEPARIN NA (PORCINE) 5,000 UNITS/ML 1ML VIAL SQ SCH (22:32)
[2023-02-19] MEDS ORDERED: KETOROLAC TROMETHAMINE 15 MG/ML VIAL ONE (00:34)
[2023-02-19 06:29] LABS: HEMATOCRIT 37.3 % (32.4-45.2); HEMOGLOBIN 12.2 GM/dL (10.7-15.3); MCH 29.2 pg (25.7-33.7); MCHC 32.7 g/dl (32.0-36.0); MEAN CELL VOLUME 89.4 fl (80-96); MEAN PLT VOLUME 10.2 fl (7.5-11.1); PLATELET COUNT 222 10^3/uL (134-434); RBC 4.17 M/mm3 (3.60-5.2); RDW 13.3 % (11.6-15.6); WHITE BLOOD COUNT 7.5 K/mm3 (4.0-10.0)
[2023-02-19 06:52] LABS: POTASSIUM 3.8 mmol/L (3.5-5.1)
[2023-02-19 06:55] LABS: BLOOD UREA NITROGEN 15.8 mg/dL (7-18); CALCIUM 9.1 mg/dL (8.5-10.1)
[2023-02-19 06:59] LABS: CREATININE 0.7 mg/dL (0.55-1.3)
[2023-02-19 09:15] VITALS: RESP 20; TEMP 98.3
[2023-02-19] MEDS ORDERED: metoPROLOL SUCCINATE 25 MG TAB.SR.24H (FP) PO ONE (10:14)
[2023-02-19] MEDS ORDERED: NICOTINE 14 MG/24 HOURS TOPICAL PATCH TD ONE (10:14)
[2023-02-19] MEDS ORDERED: LISINOPRIL 5 MG TABLET ONE (10:14)
[2023-02-19] MEDS ORDERED: HEPARIN NA (PORCINE) 5,000 UNITS/ML 1ML VIAL ONE (10:15)
[2023-02-19] MEDS: LISINOPRIL 5 MG TABLET PO SCH (10:26)
[2023-02-19] MEDS: metoPROLOL SUCCINATE 25 MG TAB.SR.24H (FP) PO SCH (10:26)
[2023-02-19] MEDS: HEPARIN NA (PORCINE) 5,000 UNITS/ML 1ML VIAL SQ SCH (10:26)
[2023-02-19] MEDS: NICOTINE 14 MG/24 HOURS TOPICAL PATCH TD SCH (10:26)
[2023-02-19] MEDS ORDERED: clonazePAM 0.5 MG TABLET ONE (11:04)
[2023-02-19] MEDS ORDERED: FLUoxetine HCL 20 MG CAPSULE PO ONE (11:40)
[2023-02-19] MEDS ORDERED: hydrOXYzine PAMOATE 25 MG CAPSULE (FP) PO PRN (11:42)
[2023-02-19 13:01] VITALS: BP 160/88; PULSE 86
[2023-02-19] MEDS ORDERED: QUETIAPINE FUMARATE 200 MG, QUETIAPINE FUMARATE 50 MG PO SCH (22:00)
[2023-02-19] MEDS ORDERED: QUEtiapine FUMARATE 200 MG TABLET PO SCH (22:00)
[2023-02-19] MEDS ORDERED: traZODone HCL 100 MG TABLET (FP) PO SCH (22:00)
[2023-02-19] MEDS ORDERED: PRAZOSIN HCL 5 MG CAPSULE PO SCH (22:00)
[2023-02-20] MEDS ORDERED: FLUoxetine HCL 20 MG CAPSULE PO SCH (10:00)
== END 2023-02-19 13:08 | disposition home or self-care (01) ==
LOC: JER 10:23 → JERBED 14:49
PROVIDERS: ADMIT Internal Medicine; ATTEND Internal Medicine
PROC: 3E0337Z Introduction of Electrolytic and Water Balance Substance into Peripheral Vein, Percutaneous Approach (ICD-10-PCS; principal; 2023-02-18)
PROC: 3E033NZ Introduction of Analgesics, Hypnotics, Sedatives into Peripheral Vein, Percutaneous Approach (ICD-10-PCS; 2023-02-18)
PROC: 3E023GC Introduction of Other Therapeutic Substance into Muscle, Percutaneous Approach (ICD-10-PCS; 2023-02-18)
DX: Z88.8 Allergy status to other drugs, medicaments and biological substances (principal); F43.10 Post-traumatic stress disorder, unspecified; F31.9 Bipolar disorder, unspecified; F17.210 Nicotine dependence, cigarettes, uncomplicated; I10 Essential (primary) hypertension; E78.5 Hyperlipidemia, unspecified; M06.9 Rheumatoid arthritis, unspecified; J45.909 Unspecified asthma, uncomplicated; R26.2 Difficulty in walking, not elsewhere classified; W03.XXXA Other fall on same level due to collision with another person, initial encounter; Y93.89 Activity, other specified; Y92.89 Other specified places as the place of occurrence of the external cause; U07.1 COVID-19; R52 Pain, unspecified; F12.10 Cannabis abuse, uncomplicated
CPT/HCPCS: 0241U-QW; 36415; 71045-TC-FY; 71101-TC-LT-FY; 72170-TC-FY; 73030-TC-LT-FY; 73552-TC-LT-FY; 73562-TC-LT-FY; 80048; 80053; 84484; 85025; 85027; 86140; 93005; 93010; 96372; 96374; 96375; 96376; 99285-25; G0378; J1644